=== PATIENT | female | born 1990 | race African-American/Black ===

== ENCOUNTER 2020-05-07 11:33 | Inpatient (IN) | payer OTHER ==
[~2020-05-07] VITALS: Ht 157.5 cm; Wt 69.9 kg
[~2020-05-07 11:33] MED LIST: DOCU-109 PO; HYDR-2761 PO
[2020-05-07 11:41] VITALS: BP 133/73
[2020-05-07] MEDS ORDERED: 0.9 % SODIUM CHLORIDE 10 ML DISP.SYRIN. IV PRN (11:45)
[2020-05-07] MEDS ORDERED: fentaNYL PF VIAL 100 MCG/2 ML VIAL IVP PRN (11:45)
[2020-05-07] MEDS ORDERED: TERBUTALINE 1 MG/ML VIAL. SQ PRN (11:45)
[2020-05-07] MEDS ORDERED: IV RINGERS,LACTATED 1000ML 1,000 ML IV SCH (11:45)
[2020-05-07] MEDS ORDERED: OXYTOCIN 30 UNIT/500 ML PREMIX 500 ML IV PRN ×2 (11:45)
[2020-05-07] MEDS ORDERED: LIDOCAINE 1% PF 30 ML VIAL. INJ PRN (11:45)
[2020-05-07] MEDS ORDERED: MMR per PROTOCOL. MC PRN (12:30)
[2020-05-07] MEDS ORDERED: PHENYLEPH/MINERAL OIL/PETROLAT RECTAL OINTMENT TUBE. RC PRN (12:30)
[2020-05-07] MEDS ORDERED: diphenhydrAMINE HCL 25 MG CAPSULE PO PRN (12:30)
[2020-05-07] MEDS ORDERED: MAG HYDROX/ALUMINUM HYD/SIMETH 30 ML ORAL.SUSP PO PRN (12:30)
[2020-05-07] MEDS ORDERED: MAGNESIUM HYDROXIDE 2,400 MG/30 ML ORAL.SUSP. PO PRN (12:30)
[2020-05-07] MEDS ORDERED: ZOLPIDEM 5 MG TABLET. PO PRN (12:30)
[2020-05-07] MEDS ORDERED: TDaP (Adacel) per PROTOCOL. MC PRN (12:30)
[2020-05-07] MEDS ORDERED: AMPICILLIN SODIUM 2 GM in IV NORMAL SALINE 100ML 100 ML IV ONE (12:30)
[2020-05-07] MEDS ORDERED: SIMETHICONE 80 MG TAB.CHEW PO PRN (12:30)
--- NOTE | 2020-05-07 12:31 | PDOC ---
GENERAL General: 30yrs old lady 34 weeks prgnancy came from [facility] in Active Labor. Admitted to Hospital. ALLERGIES Allergies: Allergies Coded Allergies Type Severity Reaction Last Updated Verified No Known Drug Allergies 09/10/18 No MEDS Medications: Current Medications Medications (Trade) Dose Ordered Sig/Tank Route PRN Reason Start Time Stop Time Status Last Admin Dose Admin Ringer's Solution 1,000 ml @ 125 mls/hr Q8H IV 05/07/20 11:45 05/07/20 12:16 Ampicillin Sodium 2 gm/Sodium Chloride 100 ml @ 200 mls/hr 1X ONCE IV 05/07/20 12:30 05/07/20 12:59 05/07/20 12:17 ASSESSMENT & PLAN A&P Vital; signs stable. Cervix 5cm dilated. Membranes intact. Patient has history of Labor and Delivery. Plan Vaginal Delivery. Justifications for Admission Other Justification JOSHUA CAMPO MD May 07, 2020 12:31
[2020-05-07 12:47] LABS: BASO % 0 % (0-3); EOS % 0 % (0-3); HEMATOCRIT 29.7 % (36.0-47.0); HEMOGLOBIN 9.5 g/dL (12.0-15.5); LYMPH % 9 % (24-48); MEAN CORPUSCULAR HEMOGLOBIN 28 pg (25-35); MEAN CORPUSCULAR HGB CONC 32 g/dL (31-37); MEAN CORPUSCULAR VOLUME 88 fL (79-100); MONO # 0.8 x10^3/uL (0.0-1.1); MONO % 8 % (0-9); NEUT # 9.2 x10^3/uL (1.8-7.7); NEUT % 83 % (31-73); PLATELET COUNT 244 x10^3/uL (140-400); RED BLOOD COUNT 3.38 x10^6/uL (3.50-5.40); RED CELL DISTRIBUTION WIDTH 13.3 % (11.5-14.5); WHITE BLOOD COUNT 11.1 x10^3/uL (4.0-11.0)
[2020-05-07 13:11] LABS: BILIRUBIN,URINE NEGATIVE (NEG); CLARITY,URINE CLEAR; COLOR,URINE YELLOW; NITRITE,URINE NEGATIVE (NEG); PH,URINE 6.5 (<5.0-8.0); PROTEIN,URINE NEGATIVE (NEG-TRACE)
[2020-05-07 13:18] LABS: BARBITURATES NEG (NEG); BENZODIAZEPINES NEG (NEG); CANNABINOIDS POS (NEG); COCAINE NEG (NEG); METHADONE NEG (NEG); OPIATES NEG (NEG); PHENCYCLIDINE NEG (NEG)
[2020-05-07 13:20] LABS: SQUAMOUS EPITHELIAL CELL,UR MOD /LPF
[2020-05-07 13:21] LABS: AMORPHOUS SEDIMENT,UR PRESENT /HPF; BACTERIA,URINE 0 /HPF (0-FEW); RBC,URINE >40 /HPF (0-2)
[2020-05-07 13:23] LABS: AMPHETAMINE/METHAMPHETAMINE NEG (NEG)
--- NOTE | 2020-05-07 13:51 | OP ---
DATE OF SURGERY: 05/07/2020 DELIVERY NOTE This patient is a 30-year-old -[place] female who is a 5, para 3, labor, 35-week , admitted to the hospital in active labor. At the time of admission to the hospital, cervix dilated to about 5-6 cm, vertex presenting, membranes intact and she did make a progress to complete dilatation. Amniotomy was done. Clear amniotic fluid seen and she had a rapid delivery. Live male weighing 5-pound 2 ounces delivered at 1327 hours on 05/07/2020 with the score of 8, 9 and 9 without any problem. Cord was clamped and cut. Cord blood taken. Placenta removed spontaneous. No hemorrhage noted. She did receive 20 units of Pitocin after delivery of the placenta. Visualization of pelvic structures revealed intact perineum and no tears seen. Estimated blood loss about 75 mL. Baby is referred to travel pt for further care and treatment. Mother tolerated the delivery well. No complications at this time. JOSHUA CAMPO MD DR: JESSICA/ke JOB#: [id number] / [id number]
--- NOTE | 2020-05-07 13:53 | HP ---
ADMIT DATE: 05/07/2020 CHIEF COMPLAINT AND HISTORY OF PRESENT ILLNESS: This patient is a 30-year-old -[place] female who is a 5, para 3, AB 1, 35-week has been seen. Limited care at [facility]. The patient came to [facility] with a history of having abdominal pain and contractions. She was seen there and transferred to [facility]. At the time of admission to the hospital, cervix was dilated to about 5-6 cm, membranes intact, vertex presenting. The patient admitted in active labor. PHYSICAL EXAMINATION: VITAL SIGNS: Being stable. GENERAL: The patient has a history of labor before. All vaginal deliveries. ABDOMEN: Feels about 35 weeks' . heart tones are 140 per minute, vertex presenting. PELVIC: Shows cervix about 5-6 cm dilated, membranes bulging. No bleeding noted at this time. IMPRESSION: 5, para 3, labor. PLAN: Vaginal delivery. JOSHUA CAMPO MD DR: JESSICA/ke JOB#: [id number] / [id number]
[2020-05-07] MEDS: IBUPROFEN 400 MG TABLET. PO PRN ×2 (16:01→23:56)
[2020-05-07 17:00] VITALS: BP 117/69
--- NOTE | 2020-05-07 18:31 | NUR ---
Breast pump given to patient at this time, denied education requesting later this evening. Addendum: 05/07/20 at 1835 by DIANA NOVOA RN Amended: Links added.
[2020-05-07 18:35] VITALS: BP 116/71
[2020-05-07 19:00] VITALS: BP 114/78
[2020-05-07] MEDS: DOCUSATE SODIUM 100 MG CAPSULE. PO PRN (19:08)
[2020-05-07] MEDS: ACETAMINOPHEN 325 MG TABLET. PO PRN (19:08)
[2020-05-08] VITALS: BP 107/58
[2020-05-08] MEDS: ACETAMINOPHEN 325 MG TABLET. PO PRN ×2 (03:36→20:41)
[2020-05-08 03:45] VITALS: BP 103/65
[2020-05-08 07:45] VITALS: BP 105/55
[2020-05-08] MEDS: FERROUS SULFATE 325 MG TABLET. PO SCH ×2 (08:43→17:05)
[2020-05-08] MEDS: DOCUSATE SODIUM 100 MG CAPSULE. PO PRN (08:44)
[2020-05-08] MEDS: IBUPROFEN 400 MG TABLET. PO PRN ×2 (08:44→17:05)
--- NOTE | 2020-05-08 13:16 | PDOC ---
GENERAL General: Patient has some Pelvic Pain Baby doing ok. VITAL SIGNS Vital Signs/I&O: Vital Signs Date Time Temp Pulse Resp B/P (MAP) Pulse Ox O2 Delivery O2 Flow Rate FiO2 05/08/20 07:45 98.3 63 18 105/55 (72) 98 Room Air 98.3 I & O 05/07/20 05/07/20 05/08/20 15:00 23:00 07:00 Intake Total 1100 ml 500 ml Balance 1100 ml 500 ml ALLERGIES Allergies: Allergies Coded Allergies Type Severity Reaction Last Updated Verified No Known Drug Allergies 09/10/18 No MEDS Medications: Current Medications Medications (Trade) Dose Ordered Sig/Tank Route PRN Reason Start Time Stop Time Status Last Admin Dose Admin Ferrous Sulfate (Feosol) 325 mg BIDWMEALS PO 05/08/20 08:00 05/08/20 08:43 LAB Lab: Laboratory Tests Test 05/08/20 05:13 Hematocrit 26.6 % (36.0-47.0) L Laboratory Tests 05/08/20 05:13 ASSESSMENT & PLAN A&P Vital signs stable. Lochia normal. Plan Dismissal in AM tomorrow Justifications for Admission Other Justification JOSHUA CAMPO MD May 08, 2020 13:16
[2020-05-08 13:18] VITALS: BP 116/74
[2020-05-08 18:24] VITALS: BP 133/77
[2020-05-09 01:02] VITALS: BP 120/73
[2020-05-09 05:38] VITALS: BP 121/79
[2020-05-09] MEDS: FERROUS SULFATE 325 MG TABLET. PO SCH (08:24)
[2020-05-09] MEDS: DOCUSATE SODIUM 100 MG CAPSULE. PO PRN (08:24)
[2020-05-09] MEDS: IBUPROFEN 400 MG TABLET. PO PRN (08:25)
--- NOTE | 2020-05-09 09:24 | PDOC ---
GENERAL General: Patient doing ok. No Problems. VITAL SIGNS Vital Signs/I&O: Vital Signs Date Time Temp Pulse Resp B/P (MAP) Pulse Ox O2 Delivery O2 Flow Rate FiO2 05/09/20 05:38 98.4 65 16 121/79 (93) 99 Room Air 98.4 I & O 05/08/20 05/08/20 05/09/20 15:00 23:00 07:00 Intake Total 600 ml 240 ml Balance 600 ml 240 ml ALLERGIES Allergies: Allergies Coded Allergies Type Severity Reaction Last Updated Verified No Known Drug Allergies 09/10/18 No ASSESSMENT & PLAN A&P Vital signs stable. Patient to be seen in office in 6 weeks. Justifications for Admission Other Justification JOSHUA CAMPO MD May 09, 2020 09:24
[2020-05-09 11:00] VITALS: BP 121/72
--- NOTE | 2020-05-09 11:00 | NUR ---
Discharge and follow up instructions reviewed and given to pt. No Rxs were given at discharge. Pt verbalized she just made a 6 weeks F/U appt at [facility] in [place] for June 22 at 1030am. Boarder policy reviewed with pt and she verbalized understanding. Pt denied any questions or complaints at this time.
--- NOTE | 2020-05-09 16:24 | NUR ---
SS following up with referral regarding "mother positive for marijuana on admission. [place]'s urine and meconium also tested positive. Baby was born at 34 weeks gestation." SS reviewed mother and infant chart and discussed with mother and infant RN. Mother discharged today and will be boarding. Infant in special care nursery. Mother and UDS positive for Marijuana. Infant meconium positive for Marijuana. Mother and infant RN reported that mother is bonding well with . No other issues noted. DCF hotline report made for Marijuana use. Intake#[id number]. PAT team referral made for substance use. Mirna Cohen from PAT team coming to visit with mother. SS will continue to follow as needed.
== END 2020-05-09 11:00 | disposition home or self-care (01) | DRG 807 ==
LOC: 3 SO LND 11:33 → 3 NORTH 17:00
PROVIDERS: ADMIT Obstetrics & Gynecology; ATTEND Obstetrics & Gynecology
PROC: 10907ZC Drainage of Amniotic Fluid, Therapeutic from Products of Conception, Via Natural or Artificial Opening (ICD-10-PCS; principal; 2020-05-07)
PROC: 10E0XZZ Delivery of Products of Conception, External Approach (ICD-10-PCS; 2020-05-07)
DX: O60.14X0 Preterm labor third trimester with preterm delivery third trimester, not applicable or unspecified (principal); Z37.0 Single live birth; O62.3 Precipitate labor; Z3A.35 35 weeks gestation of pregnancy; Z20.828 Contact with and (suspected) exposure to other viral communicable diseases
CPT/HCPCS: 36415; 80307; 81001; 85014; 85025; 86592; 86703; 86762; 86850; 86900; 86901; 87086; 87340; 87426; 87653; J0290; J2590; J3010; J7120; G0378; U0003-CS